=== PATIENT | female | born 1965 | race Caucasian/White ===

== ENCOUNTER 2016-10-27 10:42 | Emergency (ER) | payer OTHER, MEDICARE ==
--- NOTE | ~2016-10-27 | CR229 ---
[facility] A Service of [facility] & [facility] RADIOLOGY TEXT RESULTS PATIENT: JOSE VALLE LOCATION: SED : 61 UNIT #: [id number] AGE: [address]: Britton Gonzáles MD SEX: F ORDER DR: [id number] [address] [address] [id number] E MR#: [id number] Acc #: [id number] NAME: JOSE VALLE : 1965 SEX: F STUDY DATE/TIME: 10/27/2016 11:37 UNIT: SED ROOM: STUDY DESCRIPTION: CR Shoulder Min 2 View Lt Attending Physician: Britton Gonzáles M.D. Ordering Physician: Britton Gonzáles M.D. Primary Care Physician: Gui Murphy M.D. MEDICAL IMAGING REPORT This report is preliminary unless electronic signature is present. EXAM Left shoulder, 10/27/2016. HISTORY 50-year-old female with left shoulder pain after cabinet fell on left shoulder 1 week ago. COMPARISON None FINDINGS 3 views of the left shoulder demonstrate no acute fracture or dislocation. Acromioclavicular joint is within normal limits. Soft tissues are unremarkable. IMPRESSION Unremarkable left shoulder. Dictated by... Shan Regalado M.D. THIS IS AN ELECTRONICALLY VERIFIED REPORT Shna Regalado M.D. at 10/27/2016 5:02 PM LAURA/edel TD: 10/27/2016 14:03 JOB #: [id number] MEDICAL IMAGING REPORT Page 1 of 1
--- NOTE | ~2016-10-27 | CT52 ---
[facility] A Service [facility] RADIOLOGY TEXT RESULTS PATIENT: JOSE VALLE LOCATION: SED : 61 UNIT #: [id number] AGE: [address]: Britton Gonzáles MD SEX: F ORDER DR: [id number] [place] [address] [id number] E MR#: [id number] Acc #: [id number] NAME: JOSE VALLE : 1965 SEX: F STUDY DATE/TIME: 10/27/2016 11:30 UNIT: SED ROOM: STUDY DESCRIPTION: CT Cervical Spine Wo Cont Attending Physician: Britton Gonzáles M.D. Ordering Physician: Britton Gonzáles M.D. Primary Care Physician: Gui Murphy M.D. MEDICAL IMAGING REPORT This report is preliminary unless electronic signature is present. EXAM Cervical spine CT 10/27/2016 INDICATION Neck pain and left upper back pain after cabinet fell on left side last week. TECHNIQUE Axial images were obtained through the cervical spine without contrast. Multiplanar reformats were obtained. This CT exam was performed with one or more of the following radiation dose reduction techniques: automatic exposure control, adjustment of mA and/or kV according to patient size, and iterative reconstruction. COMPARISON No comparison CT. FINDINGS No fracture or subluxation is identified. Patient is fused with an anterior plate and screws at C5-6. IMPRESSION Status post cervical fusion at C5-6. Otherwise, negative C-spine CT. Dictated by... West Butts Jr., M.D. THIS IS AN ELECTRONICALLY VERIFIED REPORT West Butts Jr., M.D. at 10/27/2016 4:53 PM RLK/heidi [facility] A [facility] RADIOLOGY TEXT RESULTS PATIENT: JOSE VALLE LOCATION: SED : 61 UNIT #: [id number] AGE: [address]: Britton Gonzáles MD SEX: F ORDER DR: TD: 10/27/2016 14:03 JOB #: [id number] MEDICAL IMAGING REPORT Page 1 of 1
--- NOTE | ~2016-10-27 | CT71 ---
[facility] A Service of [facility] RADIOLOGY TEXT RESULTS PATIENT: JOSE VALLE LOCATION: SED : 61 UNIT #: [id number] AGE: [address]: Britton Gonzáles MD SEX: F ORDER DR: [id number] [place] [id number] E MR#: [id number] Acc #: [id number] NAME: JOSE VALLE : 1965 SEX: F STUDY DATE/TIME: 10/27/2016 11:21 UNIT: SED ROOM: STUDY DESCRIPTION: CT Head Wo Contrast Attending Physician: Britton Gonzáles M.D. Ordering Physician: Britton Gonzáles M.D. Primary Care Physician: Gui Murphy M.D. MEDICAL IMAGING REPORT This report is preliminary unless electronic signature is present. EXAM CT of the head without contrast. INDICATIONS Pain after a cabinet fell on her left side. This occurred last week. TECHNIQUE Axial CT images were obtained from the vertex of the skull through skull base. No intravenous contrast was administered. This CT exam was performed with one or more of the following radiation dose reduction techniques: automatic exposure control, adjustment of mA and/or kV according to patient size, and iterative reconstruction. FINDINGS No acute intracranial hemorrhage is identified. Brain parenchyma is normal in attenuation without focal area of decreased attenuation seen. There is no midline shift or mass effect. Ventricles are normal in size. No calvarial fracture is seen. There is near complete opacification of the right sphenoid sinus. Remainder of visualized paranasal sinuses and mastoid air cells appear clear and there are no focal soft tissue abnormalities. IMPRESSION 1. No acute intracranial process identified. Specifically, there is no evidence of acute hemorrhage, mass lesion or acute infarct. 2. Patient is noted to have near-complete opacification of the right sphenoid sinus. Dictated by... Fatimah Elizondo M.D. [facility] A Service [facility] RADIOLOGY TEXT RESULTS PATIENT: JOSE VALLE LOCATION: SED : 61 UNIT #: [id number] AGE: [address]: Britton Gonzáles MD SEX: F ORDER DR: THIS IS AN ELECTRONICALLY VERIFIED REPORT Fatimah Elizondo M.D. at 10/27/2016 3:44 PM AFF/pc TD: 10/27/2016 13:47 JOB #: [id number] MEDICAL IMAGING REPORT Page 1 of 1
--- NOTE | ~2016-10-27 | CR63 ---
[facility] A Service [facility] RADIOLOGY TEXT RESULTS PATIENT: JOSE VALLE LOCATION: SED : 61 UNIT #: [id number] AGE: [address]: Britton Gonzáles MD SEX: F ORDER DR: [id number] [place] [address] [id number] E MR#: [id number] Acc #: [id number] NAME: JOSE VALLE : 1965 SEX: F STUDY DATE/TIME: 10/27/2016 11:25 UNIT: SED ROOM: STUDY DESCRIPTION: CR Chest 2 View Attending Physician: Britton Gonzáles M.D. Ordering Physician: Britton Gonzáles M.D. Primary Care Physician: Gui Murphy M.D. MEDICAL IMAGING REPORT This report is preliminary unless electronic signature is present. EXAM Chest x-ray 10/27 INDICATIONS Chest pain and left upper back pain after cabinet fell on patient's left side last week. COMPARISON 01/16/2007 FINDINGS PA and lateral examination of the chest upright shows a good expansion of the parenchyma with a normal distribution of the pulmonary vascularity. There is no indication of congestion, effusion, infiltrate, tumor, or nodular density. The pleural reflections and diaphragmatic contours are normal. The cardiac silhouette and mediastinal anatomy is within normal limits. IMPRESSION Normal chest. Dictated by... West Butts Jr., M.D. THIS IS AN ELECTRONICALLY VERIFIED REPORT West Butts Jr., M.D. at 10/27/2016 4:53 PM ALPHONSO/raul TD: 10/27/2016 13:51 JOB #: [id number] [facility] A Service of [facility] RADIOLOGY TEXT RESULTS PATIENT: JOSE VALLE LOCATION: SED : 61 UNIT #: [id number] AGE: [address]: Britton Gonzáles MD SEX: F ORDER DR: MEDICAL IMAGING REPORT Page 1 of 1
[~2016-10-27 10:42] MED LIST: BENADRYL PO; DIAZEPAM PO; FLEXERIL PO; FLEXERIL10 MG PO; LORTAB 7.5-3251 EACH PO; NEURONTIN300 MG PO
[2016-10-27] MEDS ORDERED: SYNTHROID88 MCG PO (10:43)
== END 2016-10-27 12:23 | disposition home or self-care (01) ==
LOC: SED 10:42
DX: S16.1XXA Strain of muscle, fascia and tendon at neck level, initial encounter (principal); F17.200 Nicotine dependence, unspecified, uncomplicated; Z79.899 Other long term (current) drug therapy; X58.XXXA Exposure to other specified factors, initial encounter; Y92.9 Unspecified place or not applicable
CPT/HCPCS: 70450; 71020; 72125; 73030; 96372; 99284; J1885